=== PATIENT | male | born 1965 | race Caucasian/White ===

== ENCOUNTER 2022-01-08 07:51 | Day surgery (SDC) | payer OTHER ==
--- NOTE | 2022-01-07 13:29 | RAD REPORT ---
EXAM DESCRIPTION: RAD - Chest Pa And Lat (2 Views) - 01/07/2022 1:22 pm CLINICAL HISTORY: pre op pending hernia surgery Chest pain. COMPARISON: No comparisons FINDINGS: The lungs are clear. The heart is normal in size. No displaced fractures. IMPRESSION: No acute or concerning finding suspected.
[2022-01-07 15:12] LABS: Absolute Lymphocytes (CBC) 1.6 K/uL (0.7-4.9); Hematocrit 45.6 % (39.6-49.0); Lymphocytes % 19.6 % (15.3-44.8); MCV 93.4 fL (80-100); MPV 8.6 fL (7.6-11.3); RBC Red Blood Cell Count 4.88 M/uL (4.33-5.43)
[2022-01-07 15:16] LABS: Potassium 3.5 mmol/L (3.5-5.1)
[2022-01-08] MEDS ORDERED: CEFAZOLIN SODIUM 1 GM/VIAL ONE (08:19)
[2022-01-08] MEDS ORDERED: Ringers Lactate 1,000 ML IV ONE (08:19)
[2022-01-08] MEDS ORDERED: ACETAMINOPHEN 500 MG TAB ONE (08:36)
[2022-01-08] MEDS ORDERED: CELECOXIB 100 MG CAPSULE ONE (08:40)
[2022-01-08] MEDS ORDERED: FENTANYL CITR 100 MCG/2 ML ONE ×2 (09:10→10:39)
[2022-01-08] MEDS ORDERED: LIDOCAINE 1% MPF 5 ML VIAL ONE (09:10)
[2022-01-08] MEDS ORDERED: propofoL 200 MG/20 ML VIAL IV ONE (09:10)
[2022-01-08] MEDS ORDERED: MIDAZOLAM HCL 2 MG/2 ML INJ ONE (09:10)
[2022-01-08] MEDS ORDERED: ROCURONIUM 50 MG/5 ML VIAL IV ONE (09:10)
[2022-01-08] MEDS ORDERED: NS 0.9% VIAL 10 ML ONE (09:23)
[2022-01-08] MEDS ORDERED: KETOROLAC 30 MG/ML INJ ONE (09:34)
[2022-01-08] MEDS ORDERED: dexAMETHasone 10 MG/ML VIAL ONE (09:34)
[2022-01-08] MEDS ORDERED: ONDANSETRON 4 MG/2 ML VIAL ONE (10:05)
[2022-01-08] MEDS ORDERED: EPHEDRINE SULF 50 MG/ML VIAL ONE (10:06)
[2022-01-08] MEDS ORDERED: NEOSTIGMINE 1 MG/ML -10 ML VIAL ONE (10:24)
[2022-01-08] MEDS ORDERED: GLYCOPYRROLATE 0.2 MG/ML SYR ONE (10:24)
[2022-01-08] MEDS ORDERED: Mastisol Adhesive Liq ONE (10:27)
--- NOTE | 2022-01-08 10:50 | P.OP ---
Date of Service: 01/08/22 Preop diagnosis: Umbilical hernia Postop diagnosis: Same Procedure performed: Laparoscopic assisted repair of umbilical hernia Surgeon: Rey Artis MD Side Trimmer: None Estimated blood loss: Minimal Specimen: Hernia sac and contents Findings: As above Anesthesia: General Complications: None Drains: None Fluids and blood products: Nonapplicable Disposition: Recovery room Operative note: Patient brought to the OR and placed in supine position. General anesthesia begun. Patient prepped and draped in usual sterile fashion. Marcaine 0.5% infiltrated locally. 15 blade used to make a 1 cm left upper quadrant incision. Subcutaneous tissue divided and fascia identified and divided. #1 Vicryl stay suture placed. Peritoneal cavity entered with sharp and blunt dissection. 12 mm trocar placed into the peritoneal cavity under direct vision. Pneumoperitoneum established. 5 mm trocar placed in the left lower quadrant. Laparoscopy revealed incarcerated omentum into a small umbilical hernia with some adhesions associated with the. Cautery and blunt dissection utilized to reduce the omentum from the hernia and lyse the adhesions that were present. Then a 3 cm supraumbilical horizontal incision made. Subcutaneous tissue divided. Hernia sac and contents identified and excised. Ventralex mesh medium in size placed in a 2 cm defect. And then #1 PDS used to secure the mesh to the peritoneal surface and close the fascial defect in a [id number] fashion. Subcutaneous was irrigated and bleeding controlled with cautery. Laparoscopy revealed complete coverage of the mesh over the hernia site. Pro tack used to secure the mesh to the peritoneal surface. Then, all trochars removed under direct vision. Subcutaneous wound was irrigated bleeding controlled with cautery. 3-0 chromic used to approximate subcutaneous tissue and close skin. Sterile dressing applied. Patient awakened and taken to recovery room in good general condition. CC: Dr. Mckee's office
[2022-01-08] MEDS ORDERED: HYDROMORPHONE HCL 1 MG/ML INJ ONE (11:07)
[2022-01-08 12:27] VITALS: BP 99/63; TEMP 96.3; O2SAT 98
--- NOTE | 2022-01-09 06:35 | EKG ---
Test Date: 2022-01-07 Test Time: 12:59:21 Psychiatry Instructor: ROSANGELA MEASUREMENT RESULTS: Intervals: Rate: 80 [place]: 128 QRSD: 86 QT: 390 QTc: 449 [place]: P: 65 [place]: 128 QRS: 47 T: 80 INTERPRETIVE STATEMENTS: Normal sinus rhythm Normal ECG Compared to ECG 10/16/2003 10:07:00 No significant changes Electronically Signed On 01-09-22 06:30:54 TILER by Ryan Chen
== END 2022-01-08 12:17 | disposition home or self-care (01) ==
LOC: OR 07:51
PROVIDERS: ATTEND Surgery
PROC: 0WUF4JZ Supplement Abdominal Wall with Synthetic Substitute, Percutaneous Endoscopic Approach (ICD-10-PCS; principal; 2022-01-08 09:30)
DX: K42.9 Umbilical hernia without obstruction or gangrene (principal)
CPT/HCPCS: 93005; 85025; 80048; 36415; 88302; 71046; 49652; J2704; J2710; J2001; J2250; J3010 ×2; J1100; A4216; J1170; J7120; J2405; J0690